=== PATIENT | male | born 1980 | race Caucasian/White ===

== ENCOUNTER 2025-04-10 23:15 | Emergency (ER) | payer BC, OTHER ==
[2025-04-10 23:52] VITALS: BP 150/114; PULSE 112
[2025-04-11] MEDS: Ketorolac 30 MG/ML SDV IM ONE (00:39)
[2025-04-11] MEDS: Acetaminophen/HYDROcodone 325-10 MG Tab PO ONE (00:44)
== END 2025-04-11 01:10 | disposition home or self-care (01) ==
LOC: JD.ED 23:15
DX: T23.251A Burn of second degree of right palm, initial encounter (principal); Z87.891 Personal history of nicotine dependence; Z79.899 Other long term (current) drug therapy; X58.XXXA Exposure to other specified factors, initial encounter
CPT/HCPCS: 16020; 96372; 99283; A9270; J1885